=== PATIENT | female | born 1980 | race Caucasian/White ===

== ENCOUNTER → 2024-03-04 16:22 | Outpatient (REF) | payer BC, SELFPAY | LOC: HWWDC 16:22 | PROVIDERS: ATTENDING PHYSICIAN Nurse Practitioner Family; FAMILY PHYSICIAN Physician Assistant Medical | DX: Z12.31 Encounter for screening mammogram for malignant neoplasm of breast (principal) | CPT/HCPCS: 77063; 77067 ==

== ENCOUNTER → 2025-03-07 08:39 | Outpatient (REF) | payer BC, SELFPAY | LOC: HWWDC 08:39 | PROVIDERS: ATTENDING PHYSICIAN Student in an Organized Health Care Education/Training Program; FAMILY PHYSICIAN Physician Assistant Medical | DX: Z12.31 Encounter for screening mammogram for malignant neoplasm of breast (principal) | CPT/HCPCS: 77063; 77067 ==

== ENCOUNTER → 2025-05-26 09:19 | Outpatient (REF) | payer BC, SELFPAY | LOC: RAD 09:19 | PROVIDERS: ATTENDING PHYSICIAN Physician Assistant | DX: M79.604 Pain in right leg (principal) | CPT/HCPCS: 93971 ==